=== PATIENT | female | born 1955 | race Caucasian/White ===

== ENCOUNTER 2020-07-07 09:20 | Emergency (ER) | payer MEDICARE, SELFPAY ==
[2020-07-07 09:40] VITALS: BP 118/68; PULSE 70; RESP 20; O2SAT 99; BMI 20.9
--- NOTE | 2020-07-07 09:53 | HMH.EDUTC ---
[facility] [place] Disposition Clinical Impression: URI (upper respiratory infection) Qualifiers: URI type: unspecified URI Qualified Code(s): J06.9 - Acute upper respiratory infection, unspecified Disposition: Home, Self-Care Condition on Discharge: Good Instructions: Sore Throat, Sinusitis, DI for Sinusitis, DI for Cough -- Adult Additional Instructions: *Monitor Temp, Over the counter Motrin or Tylenol as directed/as needed Tylenol every 4 hours and Motrin every 6 hours (as long as your family doctor has told you that you can take it) for fever or pain. and straight to ER if unable to lower temp less than 101.0 after medication given *Warm salt water gargles may help to soothe the throat *Throat Lozenges *Warm fluids like tea with honey may help to soothe the throat *Sleep elevated *Humidifier/Vaporizer Follow up IMMEDIATELY for new or worsening symptoms or no Noticeable improvement over the next 48-72 hours. 911 for difficulty breathing or swallowing You were tested for today for COVID19 your test result should be back in the next 24-48 hours, you may call to the [facility] to see if your test results are back in the next 48 hours [phone] [facility] hours are 9am-9pm You was given a handout with instructions for Self Quarantine and Self isolation for while you wait on test results and what to do if they are positive If you are positive the Health Dept will be contacting you also Prescriptions: Benzonatate [Tessalon Perle 100mg Cap*] 100 mg PO TID PRN #15 cap PRN Reason: Cough Transmission Status: Received by [employer] # Azithromycin [Z-Justin 250mg Tab] 250 mg PO DIRECTED #6 tab Transmission Status: Received by [employer] # Referrals: Soraya Johnson [Primary Care Provider] - As needed Time of Disposition: 10:00 Medical Decision Making - Haider Inquiry Pt receiving controlled substance: No Haider was queried for this patient: No Vital Signs: 07/07/20 09:40 Pulse Rate [Radial] 70 Respiratory Rate 20 Blood Pressure [Right Arm] 118/68 Blood Pressure Mean [Right Arm] 84 Blood Pressure Source [Right Arm] Automatic Cuff Blood Pressure Position [Right Arm] Sitting 02 Sat by Pulse Oximetry 99 Oxygen Delivery Method Room Air Orders (Tests/Meds): ORDERS Category Date Time Status Covid-19 Nasal PCR ([facility]) Routine Lab 07/07/20 09:[address] [facility] [place] [place] HPI - General Stated complaint: cough,weakness,wants covid test Time Seen by Provider: 07/07/20 09:53 Mode of Arrival: Ambulatory Source of Information: Patient Limitations: No Limitations Description of Symptoms (Recalled from Triage Doc. by RN): coughing, achy, wants covid test. HEENT Symptoms (Recalled from RN notes): Yes Resp Symptoms (Recalled from RN notes): No Skin Symptoms (Recalled from RN notes): No MS Symptoms (Recalled from RN notes): No Functional Status (Recalled from RN notes): wnl - History of Present Illness Provider Complaint: Patient states that she has been having sinus congestion and pressure, cough, and body aches States that last night she was up most of the night coughing States that she come in today to get checked for flu and covid - Related Data Previous Rx's Medication Instructions Recorded Azithromycin [Z-Justin 250mg Tab] 250 mg PO DIRECTED #6 tab 07/07/20 Benzonatate [Tessalon Perle 100mg 100 mg PO TID PRN #15 cap 07/07/20 Cap*] Allergies Allergy/AdvReac Type Severity Reaction Status Date / Time Penicillins Allergy Verified 07/07/20 09:44 - Worker's Comp Is this a Worker's Comp case?: No [facility] History - Hepatitis A Screen Drug use history?: No High risk sexual behaviors?: No History of sexually transmitted infection?: No Currently employed?: No Childcare worker?: No Do you have indoor plumbing?: Yes Do you have electricity?: Yes Attestation statement:: This patient has been screened for Hepatitis A risk factors. I have reviewed the patient's past medical history: Yes - Soci
[2020-07-07 10:12] LABS: UTC Influenza A Antigen Negative (Negative); UTC Influenza B Antigen Negative (Negative)
[2020-07-07 10:17] VITALS: BP 118/68; PULSE 70; RESP 20; TEMP 36.6; O2SAT 99
--- NOTE | 2020-07-07 15:23 | PC.NURSE ---
Attempted to call COVID results to patient. No answer, message left to call back.
--- NOTE | 2020-07-07 15:45 | PC.NURSE ---
Patient notified of positive COVID results. Educated on quarantine.
== END 2020-07-07 10:17 | disposition home or self-care (01) ==
PROVIDERS: Emergency Provider Nurse Practitioner; PCP Family Medicine
DX: U07.1 COVID-19 (principal)
CPT/HCPCS: G0463; 87804; 99201; U0003

== ENCOUNTER 2020-11-27 00:28 | Emergency (ER) | payer MEDICARE, SELFPAY ==
[2020-11-27 00:32] VITALS: BMI 25.8
[2020-11-27 00:38] LABS: Microscopic, Urine URINE MICROSCOPIC (MICROSCOPIC)
[2020-11-27 00:40] VITALS: BP 150/69; PULSE 75; RESP 26; TEMP 36.9; O2SAT 100; BMI 20.7
[2020-11-27 00:41] LABS: Appearance,Urine CLEAR (Clear); Bilirubin,Urine Negative (Negative); Blood, Urine Negative (Negative); Color,Urine YELLOW (Yellow); Glucose,Urine (UA) Negative (Negative); Ketones,Urine Negative (Negative); Leukocyte Esterase,Urine TRACE (Negative); Nitrate,Urine Negative (Negative); PH,Urine 6.5 (5.0-8.5); Protein,Urine Negative (Negative); Specific Gravity, Urine 1.025 (1.005-1.030); Urobilinogen,Urine 0.2 EU/dl (0.2)
--- NOTE | 2020-11-27 00:56 | CT_ITS ---
PROCEDURE INFORMATION: Exam: CT Abdomen And Pelvis With Contrast Exam date and time: 11/27/2020 12:56 AM Age: 65 years old Clinical indication: Abdominal pain; Prior surgery; Surgery date: 6+ months; Surgery type: Hemmarhoid surgery; Patient HX: Pain in all 4 lower quads and into her back; Additional info: Abd pain TECHNIQUE: Imaging protocol: Computed tomography of the abdomen and pelvis with contrast. Radiation optimization: All CT scans at this facility use at least one of these dose optimization techniques: automated exposure control; mA and/or kV adjustment per patient size (includes targeted exams where dose is matched to clinical indication); or iterative reconstruction. Contrast material: ISOVUE; Contrast volume: 75 ml; Contrast route: IV; Other contrast: Oral, gastroview, 30; COMPARISON: No relevant prior studies available. FINDINGS: Lungs: Calcified granuloma within the right middle lobe. Minimal bibasilar atelectasis. Mediastinal space: Small-sized hiatal hernia. Liver: Normal. Gallbladder and bile ducts: Normal. Pancreas: Normal. Spleen: Normal. Adrenal glands: Normal. No mass. Kidneys and ureters: Normal. Stomach and bowel: Moderate amount of stool throughout the colon, suggesting constipation. No obstruction. Appendix: No evidence of appendicitis. Intraperitoneal space: Unremarkable. No free air. No significant fluid collection. Vasculature: Unremarkable. No abdominal aortic aneurysm. Lymph nodes: Unremarkable. No enlarged lymph nodes. Urinary bladder: Unremarkable as visualized. Reproductive: Dystrophic calcifications within the right uterine fundal myometrium, likely degenerating fibroid. Bones/joints: No acute abnormality. Soft tissues: Normal. IMPRESSION: Moderate amount of stool throughout the colon, suggesting constipation. No obstruction.
[2020-11-27 01:01] LABS: Chloride 102 mmol/L (98-107); Sodium 135 mmol/L (136-145)
[2020-11-27 01:02] LABS: Potassium 3.8 mmoL/L (3.5-5.1)
[2020-11-27 01:02] LABS: Bacteria,Urine 1+ /lpf; Mucus,Urine 1+ /lpf; RBC,Urine Occasional #/hpf (0-3)
[2020-11-27 01:04] LABS: Alanine Aminotransferase 26 U/L (12-78); Albumin Level 4.7 g/dl (3.5-5.0); Albumin/Globulin Ratio 1.9 (1.1-1.8); Alkaline Phosphatase 79 U/L (38-126); Amylase 94 U/L (30-110); Anion Gap 9.8 mEq/L (5-15); Aspartate Amino Transferase 42 U/L (14-36); Bilirubin,Total 0.5 mg/dl (0.2-1.3); Blood Urea Nitrogen 20 mg/dl (7-17); Calcium 10.1 mg/dl (8.4-10.2); Carbon Dioxide 27 mmol/L (22.0-30.0); Creatinine Clearance Estimated 49 mL/min (50-200); Estimated Glomerular Filt Rate 62 ml/min (>60); GFR (African American) 76 ML/MIN (>60); Globulin 2.5 g/dL (1.3-3.2); Glucose 104 mg/dl (74-100); Lipase 116 U/L (23-300); Total Protein,Serum 7.2 g/dl (6.3-8.2)
[2020-11-27 01:05] LABS: Alanine Aminotransferase 26 U/L (12-78); Albumin Level 4.7 g/dl (3.5-5.0); Alkaline Phosphatase 80 U/L (38-126); Aspartate Amino Transferase 43 U/L (14-36); Bilirubin,Direct 0.3 mg/dl (0.0-0.4); Bilirubin,Indirect 0.2 mg/dL (0.0-0.9); Bilirubin,Total 0.5 mg/dl (0.2-1.3); Bilirubin,Unconjugated 0.3 mg/dL (0.0-1.1); Total Protein,Serum 7.2 g/dl (6.3-8.2)
[2020-11-27 01:07] VITALS: BP 124/59; PULSE 68; RESP 20; O2SAT 100
[2020-11-27 01:07] LABS: Basophils # 0.1 K/mm3 (0-0.2); Basophils % 0.5 % (0.1-2.0); Eosinophils # 0.2 K/mm3 (0.0-0.4); Eosinophils % 1.7 % (0.1-12.0); Hematocrit 44.1 % (37.0-47.0); Hemoglobin 14.6 g/dL (12.2-16.2); Lymphocytes # 2.8 K/mm3 (0.7-4.5); Lymphocytes % 27.9 % (10-50); Mean Corpuscular HGB Conc 33.2 g/dL (31.8-35.4); Mean Corpuscular Hemoglobin 29.2 pg (27.0-31.2); Mean Platelet Volume 8.3 fl (7.4-10.4); Monocytes # 0.7 K/mm3 (0.1-1.0); Monocytes % 6.6 % (1.7-9.3); Neutrophils # 6.3 K/mm3 (1.8-7.8); Neutrophils % 63.3 % (37.0-80.0); Platelet Count 260 K/mm3 (142-424); Red Blood Count 5.01 M/mm3 (4.20-5.40); Red Cell Distribution Width 13.7 % (11.5-17.5)
[2020-11-27 01:08] LABS: Adenovirus,PCR Not Detected (NotDetected); Bordetella Pertussis Not Detected (NotDetected); Chlamydophila Pneumoniae, PCR Not Detected (NotDetected); Coronavirus 19, PCR Not Detected (NotDetected); Coronavirus 229E Not Detected (NotDetected); Coronavirus NL63 Not Detected (NotDetected); Coronavirus OC43 Not Detected (NotDetected); Coronovirus HKU1,PCR Not Detected (NotDetected); Human Metapneumovirus Not Detected (NotDetected); Influenza A, PCR Not Detected (NotDetected); Influenza AH1, 2009 Not Detected (NotDetected); Influenza AH1, PCR Not Detected (NotDetected); Influenza AH3,PCR Not Detected (NotDetected); Influenza B, PCR Not Detected (NotDetected); Mycoplasma Pneumoniae, PCR Not Detected (NotDetected); Parainfluenza 1, PCR Not Detected (NotDetected); Parainfluenza 2, PCR Not Detected (NotDetected); Parainfluenza 3, PCR Not Detected (NotDetected); Parainfluenza 4, PCR Not Detected (NotDetected); Respiratory Syncytial Virus Not Detected (NotDetected); Rhinovirus/Enterovirus Not Detected (NotDetected)
[2020-11-27 01:08] LABS: Lactic Acid 0.9 mmol/L (0.7-2.1)
--- NOTE | 2020-11-27 01:08 | PC.NURSE ---
pt completed her oral contrast at 0107, radiology notified
[2020-11-27 01:10] LABS: C-Reactive Protein 4.4 mg/L (0-4)
[2020-11-27 01:30] VITALS: BP 130/65; PULSE 62; O2SAT 100
--- NOTE | 2020-11-27 01:36 | HMH.EDNVD ---
ED Disposition Clinical Impression: Abdominal pain Qualifiers: Abdominal location: generalized Qualified Code(s): R10.84 - Generalized abdominal pain Disposition: Home, Self-Care Condition on Discharge: Good Instructions: DI for Acute Abdominal Pain Additional Instructions: fluids and see pcp for follow up or recheck in ed Referrals: Soraya Johnson [Primary Care Provider] - - Critical Care Critical Care Time: No Attestation: On 11/27/20, the high probability of a clinically significant, sudden or life threatening deterioration of the following system(s) required my full and direct attention, intervention and personal management. The time I documented below is in addition to time spent performing reported procedures but includes the following listed in this critical care notation. Medical Decision Making - Medical Records Medical records reviewed: Yes: I reviewed the patient's medical records. - Haider Inquiry Pt receiving controlled substance: No Vital Signs: 11/27/20 00:40 11/27/20 01:07 11/27/20 01:30 Temperature 98.4 F Temperature Source Oral Pulse Rate 68 62 Pulse Rate [Right] 75 Respiratory Rate 26 H 20 Blood Pressure 124/59 L 130/65 Blood Pressure [Right Arm] 150/69 H Blood Pressure Mean 83 Blood Pressure Mean [Right Arm] 96 Blood Pressure Source [Right Arm] Automatic Cuff Blood Pressure Position Supine Blood Pressure Position [Right Arm] Supine 02 Sat by Pulse Oximetry 100 100 100 Oxygen Delivery Method Room Air Room Air Room Air 11/27/20 02:00 Temperature Temperature Source Pulse Rate 60 Pulse Rate [Right] Respiratory Rate Blood Pressure 127/69 Blood Pressure [Right Arm] Blood Pressure Mean 88 Blood Pressure Mean [Right Arm] Blood Pressure Source [Right Arm] Blood Pressure Position Blood Pressure Position [Right Arm] 02 Sat by Pulse Oximetry 100 Oxygen Delivery Method Room Air - Lab Data Lab results reviewed: Yes: I reviewed the patient's lab results. Lab Results 11/27/20 00:33: Urine Color Yellow, Urine Appearance Clear, Urine pH 6.5, Ur Specific Vernon 1.025, Urine Protein Negative, Urine Glucose (UA) Negative, Urine Ketones Negative, Urine Blood Negative, Urine Nitrate Negative, Urine Bilirubin Negative, Urine Urobilinogen 0.2, Ur Leukocyte Esterase Trace, Urine RBC Occasional, Urine WBC 3-5, Ur Squamous Epith Cells 3-5, Urine Bacteria 1+, Urine Mucus 1+ 11/27/20 00:40: WBC 10.0, RBC 5.01, Hgb 14.6, Hct 44.1, MCV 88.0, MCH 29.2, MCHC 33.2, RDW 13.7, Plt Count 260, MPV 8.3, Neut % (Auto) 63.3, Lymph % (Auto) 27.9, [place] % (Auto) 6.6, Eos % (Auto) 1.7, Baso % (Auto) 0.5, Neut # (Auto) 6.3, Lymph # (Auto) 2.8, [place] # (Auto) 0.7, Eos # (Auto) 0.2, Baso # (Auto) 0.1 11/27/20 00:40: Sodium 135 L, Potassium 3.8, Chloride 102, Carbon Dioxide 27, Anion Gap 9.8, BUN 20 H, Creatinine 0.90, Estimated Creat Clear 49, Estimated GFR 62, Est GFR ( Amer) 76, Glucose 104 H, Calcium 10.1, Total Bilirubin 0.5, AST 42 H, ALT 26, Alkaline Phosphatase 79, C-Reactive Protein 4.4 H, Total Protein 7.2, Albumin 4.7, Globulin 2.5, Albumin/Globulin Ratio 1.9 H, Amylase 94, Lipase 116 11/27/20 00:40: ESR 3 11/27/20 00:40: Total Bilirubin 0.5, Direct Bilirubin 0.3, Conjugated Bilirubin 0.0, Indirect Bilirubin 0.2, Unconjugated Bilirubin 0.3, AST 43 H, ALT 26, Alkaline Phosphatase 80, Total Protein 7.2, Albumin 4.7, Procalcitonin 0.064 11/27/20 00:40: Lactate 0.9 11/27/20 01:00: Chlamy pneumoniae PCR Not detected, Adenovirus (PCR) Not detected, B. pertussis DNA (PCR) Not detected, Coronavirus OC43 (PCR) Not detected, Coronavirus HKU1 (PCR) Not detected, Coronavirus 229E (PCR) Not detected, SARS-CoV-2 (PCR) Not detected, Coronavirus NL63 (PCR) Not detected, Human Metapneumovir PCR Not detected, Influenza A (H1) PCR Not detected, Influ A (H1N1/09) PCR Not detected, Influenza A (H3) PCR Not detected, Influenza Type A (PCR) Not detected, Influenza Type B (PCR) Not detected, M. pneumoniae (PCR) Not
[2020-11-27 01:50] LABS: Procalcitonin 0.064 ng/mL (0.0-2.0)
[2020-11-27 01:51] LABS: Erythrocyte Sedimentation Rate 3 mm/hr (0-30)
[2020-11-27 02:00] VITALS: BP 127/69; PULSE 60; O2SAT 100
--- NOTE | 2020-11-27 02:29 | PC.NURSE ---
pt to CT
[2020-11-27 04:51] VITALS: BP 118/62; PULSE 60; RESP 18; TEMP 36.7; O2SAT 100
== END 2020-11-27 04:56 | disposition home or self-care (01) ==
PROVIDERS: Emergency Provider Emergency Medicine; PCP Family Medicine
DX: R10.84 Generalized abdominal pain (principal); M54.5 Low back pain; Z20.822 Contact with and (suspected) exposure to COVID-19; Z88.0 Allergy status to penicillin
CPT/HCPCS: 74177; 80053; 80076; 81001; 82150; 83605; 83690; 84145; 85025; 85651; 86140; 87040; 87581; 87633; 87798; 96365; 96366; 96375; 99284; J2405; Q9967

== ENCOUNTER 2023-08-06 08:09 | Outpatient (CLI) | payer OTHER, SELFPAY ==
[2023-08-06 09:11] LABS: Basophils # 0.1 K/mm3 (0-0.2); Basophils % 1.3 % (0.1-2.0); Eosinophils # 0.1 K/mm3 (0.0-0.4); Eosinophils % 2.4 % (0.1-12.0); Hematocrit 43.9 % (37.0-47.0); Hemoglobin 14.8 g/dL (12.2-16.2); Lymphocytes # 1.8 K/mm3 (0.7-4.5); Lymphocytes % 42.7 % (10-50); Mean Corpuscular HGB Conc 33.6 g/dL (31.8-35.4); Mean Corpuscular Hemoglobin 30.2 pg (27.0-31.2); Mean Corpuscular Volume 89.8 fl (81-99); Mean Platelet Volume 8.7 fl (7.4-10.4); Monocytes # 0.3 K/mm3 (0.1-1.0); Monocytes % 7.6 % (1.7-9.3); Neutrophils # 1.9 K/mm3 (1.8-7.8); Platelet Count 232 K/mm3 (142-424); Red Blood Count 4.89 M/mm3 (4.20-5.40); White Blood Count 4.2 K/mm3 (4.8-10.8)
[2023-08-06 09:27] LABS: INR 0.97 (0.9-1.1); Prothrombin Time 10.5 seconds (10.1-12.5)
[2023-08-06 09:44] LABS: Chloride 104 mmol/L (98-107); Potassium 4.2 mmoL/L (3.5-5.1); Sodium 139 mmol/L (136-145)
[2023-08-06 09:46] LABS: Alanine Aminotransferase 111 U/L (12-78); Aspartate Amino Transferase 99 U/L (14-36); Blood Urea Nitrogen 23 mg/dl (7-17); Estimated Glomerular Filt Rate 62 ml/min (>60); GFR (African American) 75 ML/MIN (>60)
[2023-08-06 09:47] LABS: Albumin Level 4.2 g/dl (3.5-5.0); Albumin/Globulin Ratio 1.6 (1.1-1.8); Alkaline Phosphatase 80 U/L (38-126); Anion Gap 9.2 mEq/L (5-15); Bilirubin,Total 0.7 mg/dl (0.2-1.3); Calcium 9.7 mg/dl (8.4-10.2); Carbon Dioxide 30 mmol/L (22.0-30.0); Globulin 2.6 g/dL (1.3-3.2); Glucose 86 mg/dl (74-100); Iron 96 ug/dL (37-170); Total Protein,Serum 6.8 g/dl (6.3-8.2)
[2023-08-06 09:57] LABS: Total Iron Binding Capacity 334 ug/dL (265-497)
[2023-08-06 10:23] LABS: Ferritin 43.8 ng/ml (11.1-264)
[2023-08-07 08:01] LABS: HBsAg Screen Negative (Negative); HCV Ab Non Reactive (Non Reactive); Hep A Ab, IGM Negative (Negative); Hep B Core Ab, IgM Negative (Negative)
[2023-08-07 08:37] LABS: Immunoglobulin A, Qn 142 mg/dL (87-352); Immunoglobulin G, Qn 1045 mg/dL (586-1602); Immunoglobulin M, Qn 20 mg/dL (26-217)
[2023-08-07 13:21] LABS: Deamidated Gliadin Abs, IgA 6 units (0-19); Deamidated Gliadin Abs, IgG 2 units (0-19); Tissue Transglutaminase IgA Ab <2 U/mL (0-3); Tissue Transglutaminase IgG Ab <2 U/mL (0-5)
[2023-08-07 14:30] LABS: Actin (Smooth Muscle) Antibody 5 Units (0-19); Angiotensin Converting Enzyme 114 U/L (14-82); Mitochondrial (M2) Antibody <20.0 Units (0.0-20.0)
[2023-08-07 15:10] LABS: Endomysial IgA Antibody Negative (Negative)
[2023-08-10 09:01] LABS: Antinuclear Antibodies, IFA Negative (.)
[2023-08-10 15:10] LABS: Liver-Kidney Microsomal Ab 1.2 Units (0.0-20.0)
[2023-08-12 10:03] LABS: Reticulin IgA Antibody Negative titer (Neg:<1:2.5)
[2023-08-13 19:45] LABS: Alpha-1-Antitrypsin 161 mg/dL (101-187)
[2023-08-18 09:56] LABS: Fibrosis Score 0.21; Fibrosis Stage F0-F1; Steatosis Score 0.36
[2023-08-18 09:57] LABS: Alpha 2-Macroglobulins, Qn 246; Haptoglobin 87; NASH Grade N0-NO NASH; Steatosis Grade S0-NO STEATOSIS
[2023-08-18 09:58] LABS: Apolipoprotein A-1 191; Bilirubin, Total 0.4; GGT 17
[2023-08-18 09:59] LABS: ALT (SGPT) P5P 111; AST (SGOT) P5P 90; Cholesterol, Total 222
[2023-08-18 10:00] LABS: Glucose 84; Triglycerides 88
== END 2023-08-06 23:59 ==
LOC: LAB 08:12
PROVIDERS: PCP Family Medicine; Visit Provider Nurse Practitioner Family
DX: K76.0 Fatty (change of) liver, not elsewhere classified (principal); R94.5 Abnormal results of liver function studies
CPT/HCPCS: 36415; 80053; 80074; 81256; 82103; 82104; 82164; 82390; 82728; 82784; 83516; 83540; 83550; 85025; 85610; 86038; 86255; 86256; 86376

== ENCOUNTER 2023-10-20 08:51 | Outpatient (CLI) | payer OTHER, SELFPAY ==
[2023-10-20 11:04] LABS: Chol/HDL Ratio 2.8 (1-3.5); Cholesterol 223 mg/dl (140-200); HDL Cholesterol 80 mg/dl (40-60); Triglycerides 74 mg/dl (30-150); VLDL Cholesterol 15 mg/dL (0-40)
[2023-10-20 11:05] LABS: Alanine Aminotransferase 91 U/L (12-78); Albumin Level 4.3 g/dl (3.5-5.0); Alkaline Phosphatase 71 U/L (38-126); Aspartate Amino Transferase 85 U/L (14-36); Bilirubin,Direct 0.1 mg/dl (0.0-0.4); Bilirubin,Indirect 0.7 mg/dL (0.0-0.9); Bilirubin,Total 0.8 mg/dl (0.2-1.3); Bilirubin,Unconjugated 0.7 mg/dL (0.0-1.1); Total Protein,Serum 6.7 g/dl (6.3-8.2)
== END 2023-10-20 23:59 | disposition home or self-care (01) ==
LOC: RAD 08:53 → LAB 08:57
PROVIDERS: Nurse Practitioner Family; Visit Provider Emergency Medicine
DX: E78.00 Pure hypercholesterolemia, unspecified (principal); D71 Functional disorders of polymorphonuclear neutrophils; K71.9 Toxic liver disease, unspecified; R94.5 Abnormal results of liver function studies
CPT/HCPCS: 36415; 80061; 80076

== ENCOUNTER 2023-11-26 07:54 | Outpatient (CLI) | payer OTHER, SELFPAY ==
[2023-11-26 08:49] LABS: Alanine Aminotransferase 102 U/L (12-78); Albumin Level 4.3 g/dl (3.5-5.0); Alkaline Phosphatase 66 U/L (38-126); Aspartate Amino Transferase 95 U/L (14-36); Bilirubin,Direct 0.1 mg/dl (0.0-0.4); Bilirubin,Indirect 0.6 mg/dL (0.0-0.9); Bilirubin,Total 0.7 mg/dl (0.2-1.3); Bilirubin,Unconjugated 0.7 mg/dL (0.0-1.1)
== END 2023-11-26 23:59 | disposition home or self-care (01) ==
LOC: LAB 07:56
PROVIDERS: Visit Provider Nurse Practitioner Family
DX: D71 Functional disorders of polymorphonuclear neutrophils (principal); K71.9 Toxic liver disease, unspecified; R94.5 Abnormal results of liver function studies
CPT/HCPCS: 36415; 80076

== ENCOUNTER 2024-05-08 08:39 | Emergency (ER) | payer MEDICARE, SELFPAY ==
[2024-05-08 08:50] VITALS: BP 136/73; PULSE 83; RESP 18; TEMP 37.2; O2SAT 97; BMI 22.6
--- NOTE | 2024-05-08 08:58 | ED_ITS ---
Discharge Plan Disposition Patient Disposition: Home, Self-Care Condition: Good Prescriptions Prescriptions: New ondansetron 4 mg tablet,disintegrating 4 mg PO Q8H PRN (Reason: nausea and vomiting) Qty: 10 0RF Referrals Follow up/Referrals: Soraya Olvera MD [Primary Care Provider] - See instructions Activity Restrictions/Add. Instructions Additional Instructions/Restrictions: *Monitor Temp, Over the counter Motrin or Tylenol as directed/as needed Tylenol every 4 hours and Motrin every 6 hours (as long as your family doctor has told you that you can take it) for fever or pain. and straight to ER if unable to lower temp less than 101.0 after medication given *Warm salt water gargles may help to soothe the throat *Throat Lozenges? *Warm fluids like tea with honey may help to soothe the throat? *Sleep elevated *Humidifier/Vaporizer ? You was given an outpatient order for diarrhea panel, please collect specimen and bring back to outpatient lab then call back to the [facility] or follow up with family doctor for results Your throat swab was sent for culture. Those results are typically sent to your primary care. Be sure to follow up in 2-3 days with your family doctor/primary care physician if no improvement so they can review those result and treat if necessary. If you don?t have a primary care doctor, I recommend you get one but in the mean time, you will have to return to a walk in clinic Follow up IMMEDIATELY for new or worsening symptoms or no Noticeable improvement over the next 48-72 hours. 911 for difficulty breathing or swallowing You were tested for today for Flu/COVID19 your test result should be back in the next few ?hours, you may check your results on the [facility] [employer] [facility] Portal Clinical Impressions Clinical Impression: Viral syndrome Instructions Patient Instructions: DI for Viral Syndrome, DI for Nausea -- Adult, Ondansetron Print Language Print Language: Arabic Discharge ED Provider: Sherry Milligan [facility] [place] HPI General Stated complaint: body ache nausea post op procidure Mode of Arrival: Ambulatory Source of Information: Patient Limitations: No Limitations Time Seen by Provider: 05/08/24 09:00 Description of Symptoms (Recalled from Triage Doc. by RN): PATIENT C/O BODY ACHES, NAUSEA, NO APPETITE, AND STOMACH CRAMPS THAT STARTED 4 DAYS AGO. PATIENT REPORTS THAT SHE HAD A COLONOSCOPY AND EGD ON THURSDAY. PATIENT DENIES VOMITING AND DIARRHEA HEENT Symptoms (Recalled from RN notes): No Resp Symptoms (Recalled from RN notes): No Skin Symptoms (Recalled from RN notes): No MS Symptoms (Recalled from RN notes): No Functional Status (Recalled from RN notes): WNL History of Present Illness Provider Complaint: Patient states that she had EGD and Colonoscopy last week and after she started with body aches, sore throat, chills no appetite and nausea States she hasnt had any vomiting or diarrhea but has been a little nauseous, not sure if she may have been exposed to something or not Denies rectal bleeding or blood in stools States this morning she was still feeling achy all over so she came in to get checked Related Data Previous Rx's ?Medication ?Instructions ?Recorded ondansetron 4 mg disintegrating 4 mg PO Q8H PRN nausea and 05/08/24 tablet vomiting #10 tabs Allergies Allergy/AdvReac Type Severity Reaction Status Date / Time Penicillins Allergy Verified 07/07/20 09:44 Worker's Comp Is this a Worker's Comp case?: No [facility] Disclaimer: The information contained in this section may have been updated after the patient was seen, as this information can be updated by other users. Surgical History (Updated 05/08/24 @ 08:57 by Daylin Jefferson RN) History of tonsillectomy History of tympanostomy tube placement History of esophagogastroduodenoscopy (EGD) History of colonoscopy Social History Smoking Status: Unknown if ever smoked alcohol intake: never current occupational status: retired Travel in the last 8 weeks: None housing: house ROS Obtained: Yes All systems reviewed & no additional complaints except as documented and Yes Systems reviewed as appropriate & no additional complaints except as documented Constitutional Constitutional: Reports system reviewed and no additional complaints, except as documented, Reports as per HPI, Reports body ache, Reports chills, Denies fever(s) and Denies headache(s) ENT Ears, Nose, Mouth, and Throat: Reports system reviewed and no additional complaints, except as documented, Reports as per HPI, Denies headache(s) and Reports sore throat Cardiovascular Cardiovascular: Reports system reviewed and no additional complaints, except as documented and Reports as per HPI Respiratory Respiratory: Reports system reviewed and no additional complaints, except as documented and Reports as per HPI Gastrointestinal Gastrointestingal: Reports system reviewed and no additional complaints, except as documented, as per HPI, cramping and nausea; Denies abdominal pain, bloating, coffee ground emesis, constipation, diarrhea, hematemesis, hematochezia, loose stools, melena or vomiting Neurologic Neurologic: Denies headache(s) Physical Exam General General appearance: alert and in no apparent distress ENT ENT exam: Present mucous membranes moist Expanded ENT Exam Throat exam: Present other (mild pharyngeal erythema noted) Respiratory Respiratory exam: Present normal lung sounds bilaterally; Absent respiratory distress or wheezes Cardiovascular Cardiovascular exam: Present regular rate, normal rhythm and normal heart sounds Abdominal Exam Abdominal exam: Present soft and normal bowel sounds; Absent distention, tenderness, guarding or rebound Neurological Exam Neurological exam: Present alert, oriented X3 and normal gait Medical Decision Making Medical Records Screening: Per USPSTF and CDC recommendations, given the prevalence of disease in our [place], it is our hospital?s policy to screen for HIV and viral Hepatitis for all patients aged 18 and over and those with ongoing risk factors. Haider Inquiry Pt receiving controlled substance: No Haider was queried for this patient: No Vital Signs: 05/08/24 08:50 Temperature 99.0 F Temperature Source Oral Pulse Rate [Left Brachial] 83 Respiratory Rate 18 Blood Pressure [Left Arm] 136/73 Blood Pressure Mean [Left Arm] 94 Blood Pressure Source [Left Arm] Automatic Cuff Blood Pressure Position [Left Arm] Sitting 02 Sat by Pulse Oximetry 97 Oxygen Delivery Method Room Air Lab Data Lab results reviewed: Yes I reviewed the patient's lab results.
[2024-05-08 09:11] LABS: Coronavirus 19, PCR Not Detected (NotDetected); Influenza A, PCR Not Detected (NotDetected); Influenza B, PCR Not Detected (NotDetected)
[2024-05-08 09:16] LABS: UTC Strep Screen (Rapid) Negative (Negative)
[2024-05-08 09:20] VITALS: BP 136/73; PULSE 83; RESP 18; TEMP 37.2; O2SAT 97
== END 2024-05-08 09:25 | disposition home or self-care (01) ==
PROVIDERS: Emergency Provider Nurse Practitioner; PCP Family Medicine
DX: B34.9 Viral infection, unspecified (principal)
CPT/HCPCS: 87636; 87880; 99213; G0381

== ENCOUNTER 2025-04-11 09:56 | Outpatient (RCR) | payer MEDICARE, SELFPAY | END 2025-04-11 23:59 | disposition home or self-care (01) | LOC: OT 09:56 | PROVIDERS: PCP Family Medicine; Visit Provider Student in an Organized Health Care Education/Training Program | DX: M75.22 Bicipital tendinitis, left shoulder (principal) | CPT/HCPCS: 97166 ==

== ENCOUNTER 2025-05-09 09:00 | Outpatient (RCR) | payer MEDICARE, SELFPAY | END 2025-05-09 23:59 | disposition home or self-care (01) | LOC: OT 09:00 | PROVIDERS: PCP Family Medicine; Visit Provider Student in an Organized Health Care Education/Training Program | DX: M75.22 Bicipital tendinitis, left shoulder (principal) | CPT/HCPCS: 97032; 97110; 97140; 97530 ==